=== PATIENT | female | born 1985 | race Hispanic/Latino ===

== ENCOUNTER 2018-04-29 15:38 | Outpatient (CLI) | payer BC ==
--- NOTE | 2018-04-29 16:25 | MRI ---
MRI BRAIN WITHOUT CONTRAST: Date: 04/29/18 Multiplanar, multisequential imaging of brain obtained. INDICATION: Headache. FINDINGS: Ventricles have normal size and position. No evidence of restricted diffusion. There is no evidence o f mass or edema. No white matter abnormality. The cerebral arteries and intracranial arteries show fl ow-voids. Paranasal sinuses are clear. There is signal seen in the left mastoid air cells consistent with mucosal edema. IMPRESSION: 1. Unremarkable MRI of brain. 2. Evidence of mucosal edema left mastoid air cells. POS: [facility]
== END 2018-04-29 15:39 | disposition home or self-care (01) ==
LOC: SCSMRI 15:38
PROVIDERS: ATTEND Family Medicine
DX: R51 Headache (principal); R60.0 Localized edema
CPT/HCPCS: 70551

== ENCOUNTER 2023-08-23 15:43 | Outpatient (CLI) | payer OTHER | END 2023-08-23 15:44 | disposition home or self-care (01) | LOC: SCSRAD 15:43 | PROVIDERS: ATTEND Nurse Practitioner Family | DX: S69.91XA Unspecified injury of right wrist, hand and finger(s), initial encounter (principal) ==

== ENCOUNTER 2025-08-18 08:48 | Outpatient (CLI) | payer BC ==
[2025-08-18] MEDS ORDERED: Sincalide 5 MCG VIAL ONE (10:08)
[2025-08-18] MEDS ORDERED: Bacteriostatic Normal Saline 30 ML VIAL ONE (10:08)
== END 2025-08-18 08:49 | disposition home or self-care (01) ==
LOC: NM 08:48
PROVIDERS: ATTEND Family Medicine
DX: K80.50 Calculus of bile duct without cholangitis or cholecystitis without obstruction (principal); R10.11 Right upper quadrant pain
CPT/HCPCS: 78227; A9537; J2805